=== PATIENT | female | born 1990 | race American Indian/Alaskan Native ===

== ENCOUNTER 2017-06-20 07:56 | Emergency (ER) | payer MEDICAID ==
[~2017-06-20] VITALS: Ht 157.5 cm; Wt 50.0 kg
[~2017-06-20 07:56] MED LIST: CLIN-80 PO; CLIN60GE TOP
[2017-06-20] MEDS ORDERED: CefTRIAXone 250MG IM Kit w/LIDOcaine IM ONE (08:40)
[2017-06-20] MEDS ORDERED: DOXY100C43 PO (08:48)
[2017-06-20 09:08] VITALS: BP 127/78
== END 2017-06-20 09:10 | disposition home or self-care (01) ==
LOC: ER 07:56
DX: A64 Unspecified sexually transmitted disease (principal)
CPT/HCPCS: 96372; 99283; J0696

== ENCOUNTER 2017-12-09 00:24 | Emergency (ER) | payer MEDICAID ==
[~2017-12-09] VITALS: Ht 157.5 cm; Wt 62.0 kg
[~2017-12-09 00:24] MED LIST changes: -CLIN-80 PO; +CLIN300C85 PO
[2017-12-09] MEDS ORDERED: ibuprofen 200mg tablet PO ONE (01:20)
[2017-12-09] MEDS ORDERED: ibuprofen tablet 400 MG TABLET PO ONE (01:20)
[2017-12-09] MEDS ORDERED: HYDROcodone/acetaminophen 5mg/325mg tablet PO ONE (01:20)
[2017-12-09] MEDS ORDERED: HYDR-569 PO (01:50)
[2017-12-09] MEDS ORDERED: AMOX-422 PO (01:50)
[2017-12-09] MEDS ORDERED: IBUP-1985 PO (01:50)
[2017-12-09 01:58] VITALS: BP 120/79
== END 2017-12-09 02:00 | disposition home or self-care (01) ==
LOC: ER 00:25
DX: S61.250A Open bite of right index finger without damage to nail, initial encounter (principal); S61.252A Open bite of right middle finger without damage to nail, initial encounter; S61.230A Puncture wound without foreign body of right index finger without damage to nail, initial encounter; S61.212A Laceration without foreign body of right middle finger without damage to nail, initial encounter; F17.200 Nicotine dependence, unspecified, uncomplicated; W54.0XXA Bitten by dog, initial encounter; Y93.89 Activity, other specified; Y92.89 Other specified places as the place of occurrence of the external cause; Y99.9 Unspecified external cause status
CPT/HCPCS: 73130; 99284

== ENCOUNTER 2018-01-12 16:36 | Emergency (ER) | payer MEDICAID ==
[~2018-01-12] VITALS: Ht 162.6 cm; Wt 54.5 kg
[~2018-01-12 16:36] MED LIST changes: +HYDR-569 PO; +IBUP-1985 PO
[2018-01-12 17:27] VITALS: BP 110/74
== END 2018-01-12 18:47 | disposition home or self-care (01) ==
LOC: ER 16:37
DX: L02.811 Cutaneous abscess of head [any part, except face] (principal)
CPT/HCPCS: 99281

== ENCOUNTER 2018-05-24 20:11 | Emergency (ER) | payer MEDICAID ==
[~2018-05-24] VITALS: Ht 157.5 cm; Wt 54.5 kg
[~2018-05-24 20:11] MED LIST changes: +HYDR-4383 PO; -HYDR-569 PO
[2018-05-24 20:26] VITALS: BP_DIAS 92
[2018-05-24 21:26] LABS: URINE HCG NEGATIVE (NEG)
[2018-05-24 21:27] LABS: CLARITY,URINE SLIGHTLY CLOUDY (Clear); COLOR,URINE YELLOW (Yellow); GLUCOSE, URINE NEGATIVE (Neg); KETONES,URINE TRACE mg/dl (Neg); LEUKOCYTE ESTERASE ,URINE NEGATIVE (Neg); NITRITES, URINE NEGATIVE (Neg); OCCULT BLOOD,URINE NEGATIVE (Neg); PH,URINE 5.5 (4.8-8.0); PROTEIN,URINE NEGATIVE (Neg); UROBILINOGEN,URINE 0.2 E.U/dL (0.2-1.0)
[2018-05-24 21:38] LABS: UA COLLECTION TYPE CLN CATCH MIDSTREAM
[2018-05-24 21:39] LABS: BACTERIA,URINE FEW /HPF (Neg); MUCUS STRANDS FEW /LPF (Neg); RBC,URINE NONE SEEN /HPF (0-2); SQUAMOUS EPITHELIAL CELL,UR MANY /LPF (FEW); WBC,URINE 0-4 /HPF (0-4)
[2018-05-24 21:40] LABS: CAL OXALATE CRYSTALS 3+ /HPF (NEGATIVE)
[2018-05-24 21:54] VITALS: BP_SYST 96
== END 2018-05-24 22:12 | disposition home or self-care (01) ==
LOC: ER 20:12
DX: R42 Dizziness and giddiness (principal)
CPT/HCPCS: 81001; 81025; 99283

== ENCOUNTER 2019-01-14 18:31 | Emergency (ER) | payer MEDICAID ==
[~2019-01-14] VITALS: Ht 157.5 cm; Wt 59.5 kg
[~2019-01-14 18:31] MED LIST changes: +CLIN-96 PO; -CLIN300C85 PO
[2019-01-14 20:05] VITALS: BP 121/42
[2019-01-14] MEDS ORDERED: LIDOcaine 1% w/EPI 1:200,000 injection 10mL vial IM ONE (20:10)
[2019-01-14] MEDS ORDERED: LIDOcaine 1% W/epiNEPHrine 1:100,000 20ml vial IJ ONE (20:30)
[2019-01-14] MEDS ORDERED: BACDS PO (20:42)
[2019-01-14] MEDS ORDERED: sulfamethoxazole/trimethoprim DS (800/160mg) tablet PO ONE (20:45)
[2019-01-14] MEDS ORDERED: ketorolac trometh. 30mg/ml inj. IM ONE (21:05)
[2019-01-14] MEDS ORDERED: BACI1PAC7 TP (21:09)
[2019-01-14] MEDS ORDERED: IBUP-1986 PO (21:09)
== END 2019-01-14 20:56 | disposition home or self-care (01) ==
LOC: ER 18:32
DX: L02.412 Cutaneous abscess of left axilla (principal); F10.99 Alcohol use, unspecified with unspecified alcohol-induced disorder; F11.90 Opioid use, unspecified, uncomplicated; Z86.14 Personal history of Methicillin resistant Staphylococcus aureus infection; Z79.899 Other long term (current) drug therapy; Y90.9 Presence of alcohol in blood, level not specified
CPT/HCPCS: 10060; 99283

== ENCOUNTER 2019-03-27 15:33 | Emergency (ER) | payer MEDICAID ==
[~2019-03-27] VITALS: Ht 157.5 cm; Wt 63.0 kg
[~2019-03-27 15:33] MED LIST changes: +CLIN-90 PO; -CLIN-96 PO; +IBUP-1986 PO
[2019-03-27 15:53] VITALS: BP 117/77
[2019-03-27] MEDS ORDERED: LIDOcaine 5% patch TP STA (16:32)
[2019-03-27] MEDS ORDERED: ketorolac trometh inj. 60 MG/2 ML VIAL IM ONE (16:35)
[2019-03-27 17:53] LABS: URINE HCG NEGATIVE (NEG)
--- NOTE | 2019-03-27 18:14 | NUR ---
BACK FROM XRAY
== END 2019-03-27 18:49 | disposition home or self-care (01) ==
LOC: ER 15:33
DX: S13.4XXA Sprain of ligaments of cervical spine, initial encounter (principal); F10.99 Alcohol use, unspecified with unspecified alcohol-induced disorder; F11.90 Opioid use, unspecified, uncomplicated; Z86.14 Personal history of Methicillin resistant Staphylococcus aureus infection; Z79.899 Other long term (current) drug therapy; V59.9XXA Occupant (driver) (passenger) of pick-up truck or van injured in unspecified traffic accident, initial encounter; Y93.89 Activity, other specified; Y92.488 Other paved roadways as the place of occurrence of the external cause; Y99.8 Other external cause status; Y90.9 Presence of alcohol in blood, level not specified
CPT/HCPCS: 72040; 81025; 96372; 99284; J1885

== ENCOUNTER 2019-11-23 14:10 | Emergency (ER) | payer MEDICAID ==
[~2019-11-23] VITALS: Ht 157.5 cm; Wt 53.0 kg
[~2019-11-23 14:10] MED LIST changes: -CLIN-90 PO; +CLIN-97 PO
[2019-11-23 14:18] VITALS: BP 148/87
[2019-11-23] MEDS ORDERED: azithromycin 250mg tablet PO ONE (15:00)
[2019-11-23] MEDS ORDERED: CefTRIAXone 250MG IM Kit w/LIDOcaine IM ONE (15:00)
[2019-11-23 15:21] LABS: URINE HCG NEGATIVE (NEG)
[2019-11-23] MEDS ORDERED: CEPH250T PO (15:47)
--- NOTE | 2019-11-27 09:43 | NUR ---
ATTEMPTED TO CALL PT REGARDING VISIT ON 11/22, NO ANSWER, MESSAGE LEFT
== END 2019-11-23 16:01 | disposition home or self-care (01) ==
LOC: ER 14:10
DX: L03.116 Cellulitis of left lower limb (principal); F11.90 Opioid use, unspecified, uncomplicated; Z20.2 Contact with and (suspected) exposure to infections with a predominantly sexual mode of transmission; Z86.14 Personal history of Methicillin resistant Staphylococcus aureus infection; Z79.82 Long term (current) use of aspirin; Z79.899 Other long term (current) drug therapy
CPT/HCPCS: 36415; 81025; 87491; 87591; 96372; 99283; J0696

== ENCOUNTER 2020-01-01 15:48 | Emergency (ER) | payer MEDICAID ==
[~2020-01-01] VITALS: Ht 157.5 cm; Wt 59.4 kg
[2020-01-01] MEDS ORDERED: CefTRIAXone 250MG IM Kit w/LIDOcaine IM ONE (16:10)
[2020-01-01 16:13] LABS: URINE HCG NEGATIVE (NEG)
[2020-01-01 16:17] LABS: CLARITY,URINE SLIGHTLY CLOUDY (Clear); COLOR,URINE YELLOW (Yellow); GLUCOSE, URINE NEGATIVE (Neg); KETONES,URINE NEGATIVE (Neg); LEUKOCYTE ESTERASE ,URINE NEGATIVE (Neg); NITRITES, URINE NEGATIVE (Neg); OCCULT BLOOD,URINE NEGATIVE (Neg); PROTEIN,URINE NEGATIVE (Neg); UROBILINOGEN,URINE 0.2 E.U/dL (0.2-1.0)
[2020-01-01 16:23] LABS: UA COLLECTION TYPE CLN CATCH MIDSTREAM
[2020-01-01] MEDS ORDERED: DOXY100C76 PO (16:23)
[2020-01-01] MEDS ORDERED: penicillin G benzathine 1.2 million unit/2ml syringe IM ONE (16:25)
[2020-01-01 17:04] LABS: BACTERIA,URINE 1+ /HPF (Neg); RBC,URINE NONE SEEN /HPF (0-2); SQUAMOUS EPITHELIAL CELL,UR MODERATE /LPF (FEW); WBC,URINE 0-4 /HPF (0-4)
[2020-01-01 17:06] VITALS: BP 126/91
== END 2020-01-01 17:08 | disposition home or self-care (01) ==
LOC: ER 15:48
DX: Z20.2 Contact with and (suspected) exposure to infections with a predominantly sexual mode of transmission (principal); N89.8 Other specified noninflammatory disorders of vagina; F11.90 Opioid use, unspecified, uncomplicated; Z72.89 Other problems related to lifestyle; Z86.14 Personal history of Methicillin resistant Staphylococcus aureus infection; Z79.899 Other long term (current) drug therapy
CPT/HCPCS: 36415; 81001; 81025; 86592; 87491; 87591; 96372; 99284; J0561; J0696

== ENCOUNTER 2020-02-08 05:05 | Emergency (ER) | payer MEDICAID ==
[~2020-02-08] VITALS: Ht 157.5 cm; Wt 60.0 kg
[2020-02-08 05:53] LABS: BASOPHILS # (AUTO) 0.1 X10'3 (0-0.2); BASOPHILS % (AUTO) 0.5 % (0-1); EOSINOPHILS # (AUTO) 0.1 X10'3 (0-0.9); EOSINOPHILS % (AUTO) 1.1 % (0-6); HEMATOCRIT 38.7 % (35.0-45.0); HEMOGLOBIN 13.4 g/dl (12.0-16.0); LYMPHOCYTES # (AUTO) 2.5 X10'3 (1.1-4.8); LYMPHOCYTES % (AUTO) 22.7 % (21-51); MEAN CORPUSCULAR HEMOGLOBIN 31.3 PG (27.0-31.0); MEAN CORPUSCULAR HGB CONC 34.7 g/dL (33.0-36.5); MEAN CORPUSCULAR VOLUME 90.3 FL (78-98); MEAN PLATELET VOLUME 7.6 FL (7.4-10.4); MONOCYTES # (AUTO) 0.7 X10'3 (0-0.9); MONOCYTES % (AUTO) 6.1 % (2-12); NEUTROPHILS # (AUTO) 7.6 X10'3 (1.8-7.7); NEUTROPHILS % (AUTO) 69.6 % (42-75); PLATELET COUNT 288 X10'3 (140-440); RED BLOOD COUNT 4.28 X10'6 (4.20-5.60); RED CELL DISTRIBUTION WIDTH 14.6 % (11.5-14.5); WHITE BLOOD COUNT 10.9 X10'3 (4.5-11.0)
[2020-02-08 05:57] LABS: URINE HCG NEGATIVE (NEG)
[2020-02-08] MEDS ORDERED: morphine 4 MG/ML inj SYRINge IV PRN (06:05)
[2020-02-08] MEDS ORDERED: normal saline 1000ML IV soln IVB ONE (06:05)
[2020-02-08] MEDS ORDERED: ondansetron/PF 4mg/2ml inj IV ONE (06:05)
[2020-02-08 06:12] LABS: ALANINE AMINOTRANSFERASE 21 U/L (12-78); ALKALINE PHOSPHATASE 89 IU/L (46-116); ANION GAP 3 (8-16); ASPARTATE AMINO TRANSFERASE 14 U/L (10-37); BILIRUBIN,TOTAL 0.3 MG/DL (0.1-1.0); BLOOD UREA NITROGEN 15 MG/DL (7-18); BUN/CREATININE RATIO 21.1 (6.6-38.0); CALCIUM 9.3 MG/DL (8.5-10.1); CHLORIDE 101 MMOL/L (99-107); CREATININE 0.71 MG/DL (0.40-0.90); GLUCOSE 90 MG/DL (70-104); LIPASE 71 U/L (73-393); POTASSIUM 3.6 MMOL/L (3.5-5.1); SODIUM 139 MMOL/L (135-145); TOTAL PROTEIN 8.1 G/DL (6.4-8.2); eGFR > 90 ML/MIN
--- NOTE | 2020-02-08 06:13 | NUR ---
given msiv 4 mg and zofran. pain is 9 out of 10 to abdomen, pt intermittently crying d/t pain. 1 liter ns started. awaiting ultrasound.
[2020-02-08 06:14] LABS: CLARITY,URINE CLEAR (Clear); COLOR,URINE YELLOW (Yellow); GLUCOSE, URINE NEGATIVE (Neg); KETONES,URINE NEGATIVE (Neg); LEUKOCYTE ESTERASE ,URINE NEGATIVE (Neg); NITRITES, URINE NEGATIVE (Neg); OCCULT BLOOD,URINE NEGATIVE (Neg); PROTEIN,URINE NEGATIVE (Neg); UROBILINOGEN,URINE 0.2 E.U/dL (0.2-1.0)
[2020-02-08 06:17] LABS: UA COLLECTION TYPE CLN CATCH MIDSTREAM
[2020-02-08 09:53] VITALS: BP 109/83
== END 2020-02-08 09:50 | disposition home or self-care (01) ==
LOC: ER 05:06
DX: R10.30 Lower abdominal pain, unspecified (principal); F11.90 Opioid use, unspecified, uncomplicated; Z86.14 Personal history of Methicillin resistant Staphylococcus aureus infection; Z72.89 Other problems related to lifestyle; Z79.2 Long term (current) use of antibiotics; Z79.899 Other long term (current) drug therapy
CPT/HCPCS: 36415; 76856; 80053; 81003; 81025; 83690; 85025; 93976; 96374; 96375; 99285; J2270; J2405; J7030

== ENCOUNTER 2020-02-29 00:04 | Emergency (ER) | payer MEDICAID ==
[~2020-02-29] VITALS: Ht 157.5 cm; Wt 59.0 kg
--- NOTE | 2020-02-29 00:25 | NUR ---
Pt. reports general mallase and mild general weakness.
[2020-02-29] MEDS ORDERED: MUPI22OI30 TOP (00:49)
[2020-02-29 00:58] VITALS: BP 120/89
== END 2020-02-29 01:00 | disposition home or self-care (01) ==
LOC: ER 00:04
DX: L01.09 Other impetigo (principal); F17.200 Nicotine dependence, unspecified, uncomplicated; F11.90 Opioid use, unspecified, uncomplicated; F15.90 Other stimulant use, unspecified, uncomplicated; Z86.14 Personal history of Methicillin resistant Staphylococcus aureus infection; Z72.89 Other problems related to lifestyle; Z79.2 Long term (current) use of antibiotics; Z79.899 Other long term (current) drug therapy
CPT/HCPCS: 99283

== ENCOUNTER 2020-03-19 04:35 | Emergency (ER) | payer MEDICAID ==
[~2020-03-19] VITALS: Ht 157.5 cm; Wt 61.4 kg
[2020-03-19 04:43] VITALS: BP 120/76
[2020-03-19 05:12] LABS: CLARITY,URINE CLEAR (Clear); COLOR,URINE YELLOW (Yellow); GLUCOSE, URINE NEGATIVE (Neg); KETONES,URINE NEGATIVE (Neg); LEUKOCYTE ESTERASE ,URINE SMALL (Neg); NITRITES, URINE NEGATIVE (Neg); OCCULT BLOOD,URINE NEGATIVE (Neg); PROTEIN,URINE NEGATIVE (Neg); UROBILINOGEN,URINE 0.2 E.U/dL (0.2-1.0)
[2020-03-19 05:15] LABS: URINE HCG NEGATIVE (NEG)
[2020-03-19 05:16] LABS: UA COLLECTION TYPE CLN CATCH MIDSTREAM
[2020-03-19] MEDS ORDERED: penicillin G benzathine 1.2 million unit/2ml syringe IM ONE (05:30)
[2020-03-19] MEDS ORDERED: azithromycin 250mg tablet PO ONE (05:30)
[2020-03-19] MEDS ORDERED: CefTRIAXone 250MG IM Kit w/LIDOcaine IM ONE (05:30)
[2020-03-19] MEDS ORDERED: DOXY100C76 PO (05:31)
[2020-03-19] MEDS ORDERED: ONDA4TAB6 PO (05:31)
[2020-03-19 05:35] LABS: BACTERIA,URINE 2+ /HPF (Neg); RBC,URINE NONE SEEN /HPF (0-2); SQUAMOUS EPITHELIAL CELL,UR FEW /LPF (FEW)
== END 2020-03-19 05:50 | disposition home or self-care (01) ==
LOC: ER 04:36
DX: A64 Unspecified sexually transmitted disease (principal); F15.10 Other stimulant abuse, uncomplicated; F11.10 Opioid abuse, uncomplicated; Z79.899 Other long term (current) drug therapy
CPT/HCPCS: 36415; 81001; 81025; 87088; 87491; 87591; 96372; 99284; J0561; J0696

== ENCOUNTER 2020-08-19 22:21 | Emergency (ER) | payer MEDICAID ==
[~2020-08-19] VITALS: Ht 157.5 cm; Wt 63.0 kg
[~2020-08-19 22:21] MED LIST changes: +ONDA4TAB6 PO
[2020-08-19 22:53] VITALS: BP 122/79
[2020-08-19 23:44] LABS: URINE HCG NEGATIVE (NEG)
[2020-08-19 23:47] LABS: CLARITY,URINE CLEAR (Clear); COLOR,URINE YELLOW (Yellow); GLUCOSE, URINE NEGATIVE (Neg); KETONES,URINE TRACE mg/dl (Neg); LEUKOCYTE ESTERASE ,URINE NEGATIVE (Neg); NITRITES, URINE NEGATIVE (Neg); OCCULT BLOOD,URINE NEGATIVE (Neg); PROTEIN,URINE NEGATIVE (Neg); UROBILINOGEN,URINE 0.2 E.U/dL (0.2-1.0)
[2020-08-19 23:49] LABS: UA COLLECTION TYPE CLN CATCH MIDSTREAM
[2020-08-19] MEDS ORDERED: CefTRIAXone 1000mg IM Kit (w/lidocaine diluent) IM STA (23:53)
[2020-08-19] MEDS ORDERED: DOXYCYCLINE 100MG CAPSULE PO ONE (23:57)
[2020-08-19] MEDS ORDERED: DOXY100C76 PO (23:59)
[2020-08-20] MEDS ORDERED: IBUP-1986 PO (00:05)
== END 2020-08-20 00:16 | disposition home or self-care (01) ==
LOC: ER 22:22
DX: A64 Unspecified sexually transmitted disease (principal); R10.30 Lower abdominal pain, unspecified; N89.8 Other specified noninflammatory disorders of vagina; R10.2 Pelvic and perineal pain; R11.0 Nausea; F15.90 Other stimulant use, unspecified, uncomplicated; F11.90 Opioid use, unspecified, uncomplicated; Z87.440 Personal history of urinary (tract) infections; Z86.14 Personal history of Methicillin resistant Staphylococcus aureus infection; Z72.89 Other problems related to lifestyle; Z79.2 Long term (current) use of antibiotics; Z79.899 Other long term (current) drug therapy
CPT/HCPCS: 36415; 81003; 81025; 87491; 87591; 96372; 99284; J0696

== ENCOUNTER 2021-08-14 23:53 | Emergency (ER) | payer MEDICAID ==
[~2021-08-14] VITALS: Ht 157.5 cm; Wt 52.3 kg
[2021-08-15 00:02] VITALS: BP 121/81
[2021-08-15] MEDS ORDERED: CLIN300C54 PO (00:33)
[2021-08-15] MEDS ORDERED: clindamycin 150mg capsule PO ONE (00:35)
== END 2021-08-15 00:47 | disposition home or self-care (01) ==
LOC: ER 23:53
DX: L03.317 Cellulitis of buttock (principal); R11.0 Nausea; F11.90 Opioid use, unspecified, uncomplicated; F15.90 Other stimulant use, unspecified, uncomplicated; Z72.89 Other problems related to lifestyle; Z86.14 Personal history of Methicillin resistant Staphylococcus aureus infection; Z87.440 Personal history of urinary (tract) infections; Z79.2 Long term (current) use of antibiotics; Z79.899 Other long term (current) drug therapy
CPT/HCPCS: 99283; 99284

== ENCOUNTER 2022-06-03 11:58 | Emergency (ER) | payer MEDICAID ==
[~2022-06-03] VITALS: Ht 158.8 cm; Wt 63.6 kg
[2022-06-03 12:00] VITALS: BP 155/86
[2022-06-03 12:23] LABS: URINE HCG NEGATIVE (NEG)
[2022-06-03 12:27] LABS: CLARITY,URINE CLOUDY (Clear); GLUCOSE, URINE NEGATIVE (Neg); KETONES,URINE NEGATIVE (Neg); LEUKOCYTE ESTERASE ,URINE NEGATIVE (Neg); NITRITES, URINE NEGATIVE (Neg); OCCULT BLOOD,URINE NEGATIVE (Neg); PROTEIN,URINE NEGATIVE (Neg); UROBILINOGEN,URINE 0.2 E.U/dL (0.2-1.0)
[2022-06-03 12:30] LABS: COLOR,URINE DARK YELLOW (Yellow); UA COLLECTION TYPE VOIDED
[2022-06-03 12:40] LABS: MUCUS STRANDS MODERATE /LPF (Neg); RBC,URINE 0-2 /HPF (0-2); SQUAMOUS EPITHELIAL CELL,UR MANY /LPF (FEW); TRICHOMONAS,URINE MOD /HPF (NEGATIVE); WBC,URINE 0-4 /HPF (0-4)
[2022-06-03 12:41] LABS: BACTERIA,URINE 2+ /HPF (Neg)
[2022-06-03] MEDS ORDERED: METR-159 PO (13:00)
[2022-06-03] MEDS ORDERED: DOXY-1 PO (13:00)
[2022-06-03] MEDS ORDERED: CefTRIAXone 500MG IM Kit w/LIDOcaine IM ONE (13:05)
[2022-06-03] MEDS ORDERED: azithromycin 250mg tablet PO ONE (13:05)
--- NOTE | 2022-06-03 13:20 | NUR ---
Patient not in room for medication administration.
--- NOTE | 2022-06-03 13:35 | NUR ---
Patient not found in department.
--- NOTE | 2022-06-03 13:41 | NUR ---
Called patient from lobby, no answer.
== END 2022-06-03 14:09 | disposition left against medical advice (07) ==
LOC: ER 11:58
DX: R10.2 Pelvic and perineal pain (principal); A59.01 Trichomonal vulvovaginitis; F15.90 Other stimulant use, unspecified, uncomplicated; F11.90 Opioid use, unspecified, uncomplicated; Z72.89 Other problems related to lifestyle; Z86.14 Personal history of Methicillin resistant Staphylococcus aureus infection; Z79.899 Other long term (current) drug therapy
CPT/HCPCS: 36415; 81001; 81025; 87491; 99283